=== PATIENT | female | born 1940 | race Caucasian/White ===

== ENCOUNTER → 2016-09-05 | Outpatient (CLI) | payer OTHER | LOC: FIMAGING 13:45 | PROVIDERS: ATTEND Internal Medicine | DX: R91.8 Other nonspecific abnormal finding of lung field (principal); J40 Bronchitis, not specified as acute or chronic; I25.10 Atherosclerotic heart disease of native coronary artery without angina pectoris; Z87.891 Personal history of nicotine dependence ==

== ENCOUNTER 2016-12-26 13:40 | Emergency (ER) | payer OTHER ==
--- NOTE | 2016-12-26 14:37 | CPEKG ---
Heart Rate: 61 RR Interval: 984 P-R Interval: 156 QRSD Interval: 84 QT Interval: 436 QTC Interval: 440 P [place]: 62 QRS [place]: 33 T Wave [place]: -1 EKG Severity - BORDERLINE ECG - EKG Impression: SINUS RHYTHM EKG Impression: BORDERLINE T ABNORMALITIES, ANTERIOR LEADS Electronically Signed By: Jayro Farmer 26-Dec-2016 20:01:12
[2016-12-26] MEDS ORDERED: ASPIRIN 81 MG CHEWABLE TAB PO ONE (14:39)
[2016-12-26] MEDS ORDERED: NS 500 ML IV ONE ×2 (14:39→16:50)
--- NOTE | 2016-12-26 14:47 | EDPHY ---
H & P Stated Complaint: bilat upper abd pain/nausea since this morning HPI/ROS: HPI CHIEF COMPLAINT: Abdominal pain, epigastric, nausea HISTORY OF PRESENT ILLNESS: This patient very pleasant 76-year-old female, she has significant past medical history for AFib, appendectomy, pulmonary hypertension, she presents emergency room with epigastric abdominal pain with associated nausea. She woke up around 6-630 this morning developed epigastric abdominal pain. She decided to go back to sleep and take a nap she also tried eating oatmeal to see if this improves her pain at the not however did not make it worse. She tells me the pain persisted epigastric regions very tender when she touches her upper abdomen right upper quadrant, she did make appoint with her primary care doctor was seen evaluated was referred to the emergency room for further evaluation. She denies chest pain or shortness of breath however pain is located epigastric region. Some radiation to back. Past Medical History: AFib, pulmonary hypertension Past Surgical History: Appendectomy Social History: Denies use drugs alcohol tobacco products Family History: Noncontributory ROS REVIEW OF SYSTEMS: A comprehensive 10 point review of systems is otherwise negative aside from elements mentioned in the history of present illness. Exam Constitutional appears well nontoxic triage nursing summary reviewed, vital signs reviewed, awake/alert. Eyes normal conjunctivae and sclera, EOMI, PERRLA. HENT normal inspection, atraumatic, moist mucus membranes, no epistaxis, neck supple/ no meningismus, no raccoon eyes. Respiratory clear to auscultation bilaterally, normal breath sounds, no respiratory distress, no wheezing. Cardiovascular rate normal, regular rhythm, no murmur, no edema, distal pulses normal. Gastrointestinal moderate amount of tenderness in epigastric region right upper quadrant, no peritoneal signs, sounds, no distension, no pulsatile mass. Genitourinary no CVA tenderness. Musculoskeletal no midline vertebral tenderness, full range of motion, no calf swelling, no tenderness of extremities, no meningismus, good pulses, neurovascularly intact. Skin pink, warm, & dry, no rash, skin atraumatic. Neurologic awake, alert and oriented x 3, AAOx3, moves all 4 extremities equally, motor intact, sensory intact, CN II-XII intact, normal cerebellar, normal vision, normal speech. Psychiatric normal mood/affect. Heme/Lymph/Immune no lymphadenopathy. Differential diagnosis includes but is not limited to and in no particular order : Bowel obstruction, appendicitis, gallbladder disease, diverticulitis, colitis , enteritis, perforated viscus, gastritis, GERD, esophagitis, urinary tract infection, pyelonephritis, kidney stones Medical Decision Making: Plan for this patient IV establishment, IV fluid bolus , IV fentanyl 50 mcg IV for pain control, IV Zofran for nausea. Check blood work, ultrasound right upper quadrant, chest x-ray, EKG, troponin. Re-evaluation: EKG interpretation by me on record in [employer] system. Impression time of EKG 1435, this is sinus rhythm rate of 61, blood work and T-wave abnormalities in V1, V2, V3. CT scan of the abdomen pelvis with IV contrast. The results of the study are severe constipation otherwise no acute inflammatory process. The study was read by Dr. Homer Lee I viewed the images myself on the PACS system. CT scan of the angiogram chest. The results of the study are negative for pulmonary embolism otherwise unremarkable CT angiogram chest. The study was read by Dr. Homer Lee I viewed the images myself on the PACS system. 1745: Re-examination at this time abdomen is soft she is feeling better. There is no guarding or peritoneal signs. No significant tenderness on exam. EKG interpretation by me on record in [employer] system. Impression time of EKG 1751, this is a repeat EKG, sinus rhythm rate of 58, the T-wave abnormalities were seen initially in V1 V2 V3 or less pronounced. This EKG appears very similar to her previous EKGs dated 06/09/2016 1843: Re-examination at this time her abdomen is soft nontender she feels much better. Specifically at this time she has no abdominal pain fever vomiting. I did review her CT scans with her angiogram of her chest and her abdomen pelvis studies, this does show constipation transverse colon. Her blood work is reassuring. She has had 2 EKGs that her acutely nonischemic, and 2 troponins that are negative. This epigastric discomfort which was pretty tender on exam when she arrived here however doing much better now on repeat examination is nontender is most likely cause of constipation transverse colon. There is no indication she is having a cardiac issue or pulmonary embolism. 2-troponin is over 4+ hours. 2 non acute EKGs and blood work reassuring brief showing CT scans. She is comfortable going home infections requesting discharge she feels much better. I do recommend MiraLax. She also understands with her at bedside return emergency room she develops any worsening abdominal pain, fever, vomiting. Source: Patient - Personal History Current Tetanus/Diphtheria Vaccine: Yes Tetanus Vaccine Date: < 10 YRS - Medical/Surgical History Hx Asthma: No Hx Chronic Respiratory Disease: No Hx Diabetes: No Hx Cardiac Disease: Yes Hx Renal Disease: No Hx Cirrhosis: No Hx Alcoholism: No Hx HIV/AIDS: No Hx Splenectomy or Spleen Trauma: No Other PMH: appy/a fib/ hip replacement - Social History Smoking Status: Never smoked Constitutional: Initial Vital Signs Temperature (C) 36.7 C 12/26/16 13:59 Heart Rate 63 12/26/16 13:59 Respiratory Rate 18 12/26/16 13:59 Blood Pressure 152/70 H 12/26/16 13:59 O2 Sat (%) 99 12/26/16 13:59 O2 Delivery Mode Room Air Allergies/Adverse Reactions: No Known Allergies Allergy (Verified 12/26/16 13:57) Home Medications: Medication Instructions Recorded Aspirin [Aspirin 81mg (*)] 81 mg PO DAILY 04/14/12 Calcium Carbonate [Oyster Shell 500 mg PO DAILY 04/14/12 Calcium 500 mg (*)] Dronedarone HCl [Multaq 400 mg (*)] 400 mg PO BIDMEAL 04/14/12 Estradiol [ESTRADIOL] 0.5 mg PO DAILY 04/14/12 Multivit-Min/FA/Lycopene/Lut 1 each PO DAILY 04/14/12 [Centrum Silver Tablet] Propylene Glycol/Peg 400 [SYSTANE 1 drop OP TID PRN 04/14/12 0.3-0.4% EYE DROPS] Diltiazem HCl [Cartia XT 240mg] 120 mg PO DAILY 09/17/12 LEVOTHYROXINE SODIUM [Tirosint 25 mcg PO DAILY 09/17/12 25mcg] medroxyPROGESTERone [Provera 2.5 2.5 mg PO DAILY 09/17/12 mg (*)] Magnesium 500 mg PO BID 09/19/12 Polyethylene Glycol 3350 [Miralax 17 gm PO DAILY #2 pkt 12/26/16 17 gm (*)] Medical Decision Making - Diagnostics Imaging Results: Imaging Impressions Chest X-Ray 12/26/16 14:39 Impression: No acute localizing features. Abdomen Ultrasound 12/26/16 14:57 Impression: 1. No visible etiology for the patient's pain. 2. Fatty liver. Findings discussed with Jayro Farmer MD 12/26/2016 at 16:20. Abdomen CT 12/26/16 16:46 Impression: 1. Significant constipation throughout the transverse colon, which could cause epigastric pain. 2. 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 4. Degenerative lumbar disk disease with moderate to severe canal stenosis at L3 -L4. Findings and recommendations discussed with Dr. Jayro Farmer, at 1742 hours on December 26, 2016. Final report concurs with initial preliminary interpretation. Chest/Thorax CTA 12/26/16 16:46 Impression: 1. No pulmonary embolism. 2. Very mild patchy density at the periphery of the right middle lobe, most likely inflammatory in nature. Findings and recommendations discussed with Dr. Jayro Farmer, at 1737 hours on December 26, 2016. Final report concurs with initial preliminary interpretation. - Data Points Laboratory Results: Laboratory Results 12/26/16 14:45 12/26/16 14:45 12/26/16 12/26/16 12/26/16 17:57 14:45 14:45 WBC RBC Hgb Hct MCV MCH MCHC RDW Plt Count MPV Neut % (Auto) Lymph % (Auto) [place] % (Auto) Eos % (Auto) Baso % (Auto) Nucleat RBC Rel Count Absolute Neuts (auto) Absolute Lymphs (auto) Absolute Monos (auto) Absolute Eos (auto) Absolute Basos (auto) Absolute Nucleated RBC Immature Gran % Immature Gran # PT 13.5 SEC SEC (12.0-15.0) INR 1.04 (0.83-1.16) APTT 25.4 SEC SEC (23.0-38.0) D-Dimer < 0.27 ug/mLFEU ug/mLFEU (0.00-0.50) Sodium 129 mEq/L L mEq/L (134-144) Potassium 4.7 mEq/L mEq/L (3.5-5.2) Chloride 95 mEq/L L mEq/L (97-110) Carbon Dioxide 22 mEq/l mEq/l (22-31) Anion Gap 12 mEq/L mEq/L (8-16) BUN 14 mg/dL mg/dL (7-23) Creatinine 0.8 mg/dL mg/dL (0.6-1.0) Estimated GFR > 60 Glucose 126 mg/dL H mg/dL (70-100) Calcium 9.5 mg/dL mg/dL (8.5-10.4) Magnesium 2.5 mg/dL H mg/dL (1.6-2.3) Total Bilirubin 1.0 mg/dL mg/dL (0.1-1.4) Conjugated Bilirubin 0.2 mg/dL mg/dL (0.0-0.5) Unconjugated Bilirubin 0.8 mg/dL mg/dL (0.0-1.1) AST 29 IU/L IU/L (14-46) ALT 35 IU/L IU/L (9-52) Alkaline Phosphatase 55 IU/L IU/L (38-126) Creatine Kinase 46 IU/L IU/L (0-156) CK-MB (CK-2) Fraction 0.64 ng/mL ng/mL (0-3.19) Troponin I < 0.012 ng/mL ng/mL < 0.012 ng/mL ng/mL (0-0.034) (0-0.034) NT-Pro-B Natriuret Pep 1300 pg/mL H pg/mL (0-450) Total Protein 8.2 g/dL g/dL (6.3-8.2) Albumin 5.0 g/dL g/dL (3.5-5.0) Lipase 133.0 IU/L IU/L (23-300) 12/26/16 14:45 WBC 10.94 10^3/uL H 10^3/uL (3.80-9.50) RBC 4.34 10^6/uL 10^6/uL (4.18-5.33) Hgb 14.8 g/dL g/dL (12.6-16.3) Hct 41.8 % % (38.0-47.0) MCV 96.3 fL fL (81.5-99.8) MCH 34.1 pg pg (27.9-34.1) MCHC 35.4 g/dL g/dL (32.4-36.7) RDW 12.2 % % (11.5-15.2) Plt Count 189 10^3/uL 10^3/uL (150-400) MPV 10.1 fL fL (8.7-11.7) Neut % (Auto) 64.1 % % (39.3-74.2) Lymph % (Auto) 28.6 % % (15.0-45.0) [place] % (Auto) 5.9 % % (4.5-13.0) Eos % (Auto) 0.2 % L % (0.6-7.6) Baso % (Auto) 0.7 % % (0.3-1.7) Nucleat RBC Rel Count 0.0 % % (0.0-0.2) Absolute Neuts (auto) 7.00 10^3/uL H 10^3/uL (1.70-6.50) Absolute Lymphs (auto) 3.13 10^3/uL H 10^3/uL (1.00-3.00) Absolute Monos (auto) 0.65 10^3/uL 10^3/uL (0.30-0.80) Absolute Eos (auto) 0.02 10^3/uL L 10^3/uL (0.03-0.40) Absolute Basos (auto) 0.08 10^3/uL 10^3/uL (0.02-0.10) Absolute Nucleated RBC 0.00 10^3/uL 10^3/uL (0-0.01) Immature Gran % 0.5 % % (0.0-1.1) Immature Gran # 0.06 10^3/uL 10^3/uL (0.00-0.10) PT INR APTT D-Dimer Sodium Potassium Chloride Carbon Dioxide Anion Gap BUN Creatinine Estimated GFR Glucose Calcium Magnesium Total Bilirubin Conjugated Bilirubin Unconjugated Bilirubin AST ALT Alkaline Phosphatase Creatine Kinase CK-MB (CK-2) Fraction Troponin I NT-Pro-B Natriuret Pep Total Protein Albumin Lipase Medications Given: Discontinued Medications Aspirin (Aspirin) 324 mg PO EDNOW ONE Stop: 12/26/16 14:40 Last Admin: 12/26/16 15:06 Dose: 324 mg Fentanyl (Sublimaze) 50 mcg IVP EDNOW ONE Stop: 12/26/16 14:59 Last Admin: 12/26/16 15:23 Dose: 50 mcg Sodium Chloride (Ns) 500 mls @ 1,000 mls/hr IV ONCE ONE PRN Reason: Protocol Stop: 12/26/16 15:08 Last Admin: 12/26/16 15:06 Dose: 500 mls Sodium Chloride (Ns) 500 mls @ 0 mls/hr IV ONCE ONE PRN Reason: Wide Open Stop: 12/26/16 16:51 Last Admin: 12/26/16 17:32 Dose: 500 mls Ondansetron HCl (Zofran) 4 mg IVP EDNOW ONE Stop: 12/26/16 14:59 Last Admin: 12/26/16 15:23 Dose: 4 mg Departure - Departure Disposition: Home, Routine, Self-Care Clinical Impression: Abdominal pain Qualifiers: Abdominal location: epigastric Qualified Code(s): R10.13 - Epigastric pain Constipation Qualifiers: Constipation type: unspecified constipation type Qualified Code(s): K59.00 - Constipation, unspecified Condition: Good Instructions: Constipation (ED), Acute Abdominal Pain (ED) Additional Instructions: 1.Drink lots of fluids stay well-hydrated. 2. Return emergency room if develops worsening abdominal pain, chest pain or shortness of breath. Referrals: Ba Talamantes MD [Primary Care Provider] - As per Instructions Prescriptions: Polyethylene Glycol 3350 [Miralax 17 gm (*)] 17 gm PO DAILY #2 pkt
[2016-12-26 14:57] LABS: % IMMATURE GRANULYOCYTES 0.5 % (0.0-1.1); ABSOLUTE IMMATURE GRANULOCYTES 0.06 10^3/uL (0.00-0.10); ADD DIFF? NO; ADD MORPH? NO; ADD SCAN? NO; ATYPICAL LYMPHOCYTE FLAG 10 (0-99); FRAGMENT RBC FLAG 0 (0-99); HEMATOCRIT 41.8 % (38.0-47.0); HEMOGLOBIN 14.8 g/dL (12.6-16.3); LEFT SHIFT FLG 0 (0-99); LIPEMIA HEMOLYSIS FLAG 90 (0-99); MEAN CELL HEMOGLOBIN 34.1 pg (27.9-34.1); MEAN CELL HEMOGLOBIN CONCENTR. 35.4 g/dL (32.4-36.7); MEAN CELL VOLUME 96.3 fL (81.5-99.8); MEAN PLATELET VOLUME 10.1 fL (8.7-11.7); PLATELET CLUMPS FLAG 0 (0-99); PLATELET COUNT 189 10^3/uL (150-400); RED BLOOD CELL COUNT 4.34 10^6/uL (4.18-5.33); RED CELL DISTRIBUTION WIDTH 12.2 % (11.5-15.2)
[2016-12-26] MEDS ORDERED: fentaNYL 100 MCG/2 ML INJ IVP ONE (14:58)
[2016-12-26] MEDS ORDERED: ONDANSETRON 4 MG/2 ML VIAL IVP ONE (14:58)
[2016-12-26 15:11] LABS: ALANINE AMINOTRANSFERASE 35 IU/L (9-52); ALKALINE PHOSPHATASE 55 IU/L (38-126); ANION GAP 12 mEq/L (8-16); ASPARTATE AMINOTRANSFERASE 29 IU/L (14-46); BILIRUBIN-CONJUGATED 0.2 mg/dL (0.0-0.5); BILIRUBIN-UNCONJUGATED 0.8 mg/dL (0.0-1.1); CALCIUM 9.5 mg/dL (8.5-10.4); CARBON DIOXIDE 22 mEq/l (22-31); CHLORIDE 95 mEq/L (97-110); CREATININE 0.8 mg/dL (0.6-1.0); GLOMERULAR FILTRATION RATE > 60; GLUCOSE 126 mg/dL (70-100); MAGNESIUM 2.5 mg/dL (1.6-2.3); POTASSIUM 4.7 mEq/L (3.5-5.2); SODIUM 129 mEq/L (134-144); TOTAL PROTEIN 8.2 g/dL (6.3-8.2)
[2016-12-26 15:15] LABS: INR 1.04 (0.83-1.16); PROTIME(PATIENT) 13.5 SEC (12.0-15.0)
[2016-12-26 15:16] LABS: APTT 25.4 SEC (23.0-38.0)
[2016-12-26 15:24] LABS: CREATINE KINASE-MB FRACTION 0.64 ng/mL (0-3.19); TROPONIN I < 0.012 ng/mL (0-0.034)
[2016-12-26] MEDS ORDERED: IOPAMIDOL (ISOVUE 370) 100 ML BTL IV ONE (17:09)
--- NOTE | 2016-12-26 17:53 | CPEKG ---
Heart Rate: 58 RR Interval: 1034 P-R Interval: 152 QRSD Interval: 82 QT Interval: 464 QTC Interval: 456 P [place]: 54 QRS [place]: 0 T Wave [place]: -25 EKG Severity - BORDERLINE ECG - EKG Impression: SINUS RHYTHM EKG Impression: BORDERLINE T ABNORMALITIES, INFERIOR LEADS Electronically Signed By: Jayro Farmer 26-Dec-2016 20:01:12
[2016-12-26 17:57] VITALS: RESP 16
[2016-12-26 19:08] VITALS: BP 139/80; PULSE 56; TEMP 98.4; O2SAT 96
== END 2016-12-26 19:06 | disposition home or self-care (01) ==
DX: K59.00 Constipation, unspecified (principal); Z79.82 Long term (current) use of aspirin; Z90.49 Acquired absence of other specified parts of digestive tract
CPT/HCPCS: 71010; 71275; 74177; 76705; 93005; 96361; 96374; 96375; 99285; J2405; J3010; Q9967

== ENCOUNTER 2018-12-29 08:06 | Day surgery (SDC) | payer OTHER | END 2018-12-29 15:57 | disposition home or self-care (01) | LOC: FCATH 08:06 ==

== ENCOUNTER → 2019-01-08 | Outpatient (CLI) | payer OTHER | LOC: FIMAGING 12:08 ==